=== PATIENT | female | born 1975 | race Caucasian/White ===

== ENCOUNTER 2016-07-02 00:31 | Emergency (ER) | payer OTHER | END 2016-07-02 03:55 | disposition home or self-care (01) | LOC: FER 00:31 | DX: L72.3 Sebaceous cyst (principal) ==

== ENCOUNTER 2021-04-14 14:31 | Emergency (ER) | payer SELFPAY ==
[~2021-04-14 14:31] MED LIST: BACTRIM DS TAB1 EACH PO; DICLOFENAC SODI75 MG PO; PREDNISONE20 MG PO; SILVASORB44.4 ML TOP; VANCOMYCIN1000 MG/VI IV
[2021-04-14 16:22] LABS: CORONAVIRUS 2019 SARS-COV-2 NEGATIVE (NEGATIVE); INFLUENZA A NAA NEGATIVE (NEGATIVE)
[2021-04-14] MEDS ORDERED: TESSALON PERLE100 MG PO (17:40)
[2021-04-14] MEDS ORDERED: VENTOLIN HFA IN18 GM INH (17:40)
== END 2021-04-14 19:23 | disposition home or self-care (01) ==
LOC: FER 14:31
PROVIDERS: Emergency Medicine
DX: J20.9 Acute bronchitis, unspecified (principal); I10 Essential (primary) hypertension; Z20.822 Contact with and (suspected) exposure to COVID-19; Z88.5 Allergy status to narcotic agent; Z88.8 Allergy status to other drugs, medicaments and biological substances
CPT/HCPCS: 99284; U0002